=== PATIENT | female | born 1955 | race Caucasian/White ===

== ENCOUNTER 2017-02-13 11:10 | Outpatient (CLI) | payer BC ==
[2017-02-13 12:11] LABS: ALT (SGPT) 17 U/L (8-55); AST (SGOT) 12 U/L (5-34); Albumin 3.8 g/dL (3.4-4.8); Alkaline Phosphatase 46 U/L (40-150); Anion Gap 14 mmol/L (10-20); BUN (Urea Nitrogen) 17 mg/dL (9.8-20.1); Bilirubin, Direct 0.1 mg/dL (0.1-0.3); Bilirubin, Total 0.3 mg/dL (0.2-1.2); Calc. Creatinine Clearance 0 mL/min (70-130); Calcium 9.5 mg/dL (7.8-10.44); Carbon Dioxide 26 mmol/L (23-31); Cardiac Risk 4.5 (Less than 4.5); Chloride 106 mmol/L (98-107); Cholesterol 218 mg/dl (< 200 Desired); Estimated GFR-MDRD 74; Glucose 102 mg/dL (80-115); HDL Cholesterol 48 mg/dL (>60 Neg Risk); LDL Cholesterol, Calculated 119 mg/dL; Potassium 4.4 mmol/L (3.5-5.1); Protein, Total 6.9 g/dL (6.0-8.3); Sodium 142 mmol/L (136-145); Triglycerides 257 mg/dL (Less than 150)
[2017-02-13 12:21] LABS: Free T4 (Free Thyroxine) 1.05 ng/dL (0.70-1.48); Thyroid Stimulating Hormone 1.5104 uIU/mL (0.35-4.94); Vitamin D, 25 Hydroxy 32.1 ng/ml (> 30.0)
[2017-02-13 19:48] LABS: Creatinine, Urine 105.61 mg/dL (47-110); Microalbumin Urine Less than 1.0 mg/dL (0.5-50.0); Microalbumin/Creat Ratio 9.5 mg/g (Less than 30)
== END 2017-02-13 11:11 | disposition home or self-care (01) ==
LOC: BURLAB 11:10
PROVIDERS: ATTEND Internal Medicine Endocrinology, Diabetes & Metabolism
DX: K76.0 Fatty (change of) liver, not elsewhere classified (principal); R73.01 Impaired fasting glucose; E03.9 Hypothyroidism, unspecified; E53.9 Vitamin B deficiency, unspecified
CPT/HCPCS: 36415; 80048; 80061; 80076; 82043; 82306; 82607; 84439; 84443

== ENCOUNTER 2017-06-19 11:56 | Outpatient (CLI) | payer BC ==
--- NOTE | 2017-06-19 22:30 | RAD ---
LEFT FOOT THREE VIEWS 06/19/17 No fracture or area of bony destruction was seen. The tarsal relations seem normal. A very large calc aneal spur is present. Some soft tissue swelling is seen on the dorsum of the forefoot, but the under lying bones showed no acute findings. IMPRESSION: No acute bony finding. POS: HOME
== END 2017-06-19 11:57 | disposition home or self-care (01) ==
LOC: BURRAD 11:56
PROVIDERS: ATTEND Nurse Practitioner
DX: S96.912A Strain of unspecified muscle and tendon at ankle and foot level, left foot, initial encounter (principal)